=== PATIENT | male | born 1975 | race Two or more races ===

== ENCOUNTER 2019-08-25 03:17 | Emergency (ER) | payer OTHER ==
[~2019-08-25] VITALS: Ht 170.2 cm; Wt 63.5 kg
--- NOTE | 2019-08-25 03:17 | NUR ---
ED Nurse Note: BROUGHT IN BY [facility] [address] C/O ETOH. PT FOUND ON SIDEWALK DRUNK. DENIES PAIN OR ANYOTHER COMPLAINT AT THIS TIME. CALM AND COOPERATIVE. NO ACUTE DISTRESS. RESPIRATIONS EVEN AND UNLABORED. PROVIDED WITH WARM BLANKET. REPOSITIONED FOR COMFORT. WILL CONTINUE TO MONITOR.
--- NOTE | 2019-08-25 03:29 | Emergency Room Report ---
History of Present Illness General Chief Complaint: Alcohol Intoxication Source: Patient, EMS Present Illness HPI 43-year-old male with a history of alcohol and drug abuse. He presents with alcohol intoxication and altered mental status. Was found sleeping on the sidewalk. Bystander called 911. Patient has no trauma. He said he did a line of methamphetamine tonight. He said he also had some alcohol. He said he could not sleep. Asking for sleeping medication. No nausea no vomiting. No seizure that was witnessed. He does not have any tongue abrasion. No head trauma. Does have incontinence of his urine. Allergies: Coded Allergies: DIPHENHYDRAMINE (Verified Allergy, Unknown, 08/25/19) Patient History Past Medical History: see triage record, old chart reviewed, seizures Past Surgical History: none Pertinent Family History: none Social History: Reports: alcohol use, drug use Immunizations: other Reviewed Nursing Documentation: PMH: Agreed; PSxH: Agreed Nursing Documentation-PMH Past Medical History: No History, Except For Hx Hypertension: Yes Hx Seizures: Yes Review of Systems Eye: Denies: eye pain, blurred vision ENT: Denies: ear pain, nose congestion, throat swelling Respiratory: Denies: cough, shortness of breath Cardiovascular: Denies: chest pain, palpitations Gastrointestinal: Denies: abdominal pain, diarrhea, nausea, vomiting Musculoskeletal: Denies: back pain, joint pain Skin: Denies: rash Neurological: Denies: headache, numbness Endocrine: Denies: increased thirst, increased urine Hematologic/Lymphatic: Denies: easy bruising All Other Systems: negative except mentioned in HPI Physical Exam Vital Signs Date Time Temp Pulse Resp B/P (MAP) Pulse Ox O2 Delivery O2 Flow Rate FiO2 08/25/19 03:14 97.9 75 16 134/88 (103) 98 Room Air Vitals normal Sp02 EP Interpretation: reviewed, normal General Appearance: well appearing, no apparent distress, alert, other - Intoxicated Head: normocephalic, atraumatic Eyes: bilateral eye PERRL, bilateral eye EOMI ENT: hearing grossly normal, normal pharynx Neck: full range of motion, supple, no meningismus Respiratory: chest non-tender, lungs clear, normal breath sounds Cardiovascular #1: regular rate, rhythm, no murmur Gastrointestinal: normal bowel sounds, non tender, no mass, no organomegaly, no bruit, non-distended Musculoskeletal: back normal, gait/station normal, normal range of motion Psychiatric: mood/affect normal Medical Decision Making Diagnostic Impression: Primary Impression: Acute alcoholic intoxication Qualified Codes: F10.920 - Alcohol use, unspecified with intoxication, uncomplicated Additional Impression: Methamphetamine abuse ER Course This patient presents with intoxication. Both by drugs and alcohol. He promptly fell asleep. I see no need for Ativan or any other benzo. I see no oral trauma or any trauma to indicate he had a seizure. Last Vital Signs Date Time Temp Pulse Resp B/P (MAP) Pulse Ox O2 Delivery O2 Flow Rate FiO2 08/25/19 03:14 97.9 75 16 134/88 (103) 98 Room Air Status: improved Disposition: HOME, SELF-CARE Condition: Stable Patient Instructions: Alcohol Intoxication, [id number] Additional Instructions: Stop using drugs and drinking alcohol. Go to rehab. Follow-up with your doctor in 7 days. Return if worse. Abel Alvarado MD Aug 25, 2019 03:29
[2019-08-25 03:32] VITALS: BP 134/88
--- NOTE | 2019-08-25 04:00 | NUR ---
ED Nurse Note: patient resting comfortably in bed with no acute distress. provided with nourishment. patient states he is not homeless and wants to sleep a little more.
[2019-08-25 05:00] VITALS: BP 134/88
[2019-08-25 05:29] VITALS: BP 134/88
--- NOTE | 2019-08-25 05:30 | NUR ---
ER DISCHARGE NOTE: Patient is cleared to be discharged per ERMD, pt is aox4, on room air, with stable vital signs. pt was given dc and prescription instructions, pt was able to verbalize understanding, pt id band removed. pt is able to ambulate with steady gait. pt took all belongings.
[2019-08-25] MEDS ORDERED: ONDANSETRON ODT4 MG BC (10:54)
[2019-08-25] MEDS ORDERED: PERMETHRIN60 GM TOPIC (10:54)
== END 2019-08-25 05:30 | disposition home or self-care (01) ==
LOC: EDBD 03:17 → EMR 03:28
DX: F10.129 Alcohol abuse with intoxication, unspecified (principal); F15.10 Other stimulant abuse, uncomplicated; I10 Essential (primary) hypertension; G40.909 Epilepsy, unspecified, not intractable, without status epilepticus; Z88.8 Allergy status to other drugs, medicaments and biological substances
CPT/HCPCS: 99282